=== PATIENT | female | born 1980 | race Caucasian/White ===

== ENCOUNTER 2017-08-26 03:48 | Emergency (ER) | payer SELFPAY ==
[~2017-08-26] VITALS: Ht 160 cm; Wt 75.0 kg
[~2017-08-26 03:48] MED LIST: IBUP-1542 PO
[2017-08-26 03:54] VITALS: Ht 160 cm; Wt 75.0 kg
[2017-08-26] MEDS ORDERED: ACET500C5 PO (04:57)
--- NOTE | 2017-08-26 05:19 | ERD ---
ER Documentation Chief Complaint Chief Complaint bodyache and MONTERROSO x 1 day. Not taking pain meds HPI 26-year-old female presents here in emergency department for complaints of headache and body started today. Patient's complaint of headache, throbbing pain, 6/10 scale, not better or worse with anything. Patient did not take any medications for pain. Patient denies any blurred vision, patient denies any head injury. Patient denies any numbness or tingling. Patient denies any sore throat or ear pain. ROS All systems reviewed and are negative except as per history of present illness. Medications Home Meds Active Scripts Acetaminophen* (Tylophen*) 500 Mg Capsule, 1 CAP PO Q6H Y for PAIN AND OR ELEVATED TEMP, #20 CAP Prov:HERNAN GUEVARA NP 08/26/17 Ibuprofen* (Motrin*) 600 Mg Tab, 600 MG PO Q6, #30 TAB Prov:KAYCEE ARZOLA PA-C 04/08/16 Allergies Allergies: Coded Allergies: No Known Allergy (Unverified , 08/26/17) PMhx/Soc History of Surgery: Yes (right thoracentesis) Anesthesia Reaction: No Hx Neurological Disorder: No Hx Respiratory Disorders: No Hx Cardiac Disorders: No Hx Psychiatric Problems: No Hx Miscellaneous Medical Probl: No Hx Alcohol Use: Yes (occasionally.) Hx Substance Use: No Hx Tobacco Use: No Smoking Status: Never smoker FmHx Family History: No coronary disease, No diabetes, No other Physical Exam Vitals Vital Signs Date Time Temp Pulse Resp B/P Pulse Ox O2 Delivery O2 Flow Rate FiO2 08/26/17 03:54 97.3 80 18 110/77 98 Physical Exam GENERAL: The patient is well developed and appropriate for usual state of health, in no apparent distress. CHEST: Clear to auscultation bilaterally. There are no rales, wheezes or rhonchi. HEART: Regular rate and rhythm. No murmurs, clicks, rubs or gallops. No S3 or S4. ABDOMEN: Soft, nontender and nondistended. Good bowel sounds. No rebound or guarding. No gross peritonitis. No gross organomegaly or masses. No Carr sign or McBurney point tenderness. BACK: No midline or flank tenderness. EXTREMITIES: Equal pulses bilaterally. There is no peripheral clubbing, cyanosis or edema. No focal swelling or erythema. Full range of motion. Grossly neurovascularly intact. NEURO: Alert and oriented. Cranial nerves 2-12 intact. Motor strength in all 4 extremities with 5/5 strength. Sensation grossly intact. Normal speech and gait. Negative Romberg sign. Negative pronator drift. SKIN: There is no apparent rash or petechia. The skin is warm and dry. HEMATOLOGIC AND LYMPHATIC: There is no evidence of excessive bruising or lymphedema. No gross cervical, axillary, or inguinal lymphadenopathy. Procedures/MDM Medical Decision Making: Patient symptoms are consistent with migraine headache , possible tension headache, can be from viral illness. There is low suspicion for neurological emergencies at this time since patients neurologic exam is normal. Patient did not have any altered level consciousness, vomiting, changes in balance or memory and did not have any head injury. Patients CT scan of the head does not show any neurological emergencies at this time. Rx: Tylenol Dispostion: Home. Stable Disclaimer: Inadvertent spelling and grammatical errors are likely due to EHR/ dictation software use and do not reflect on the overall quality of patient care. Also, please note that the electronic time recorded on this note does not necessarily reflect the actual time of the patient encounter. Departure Diagnosis: Primary Impression: Headache Headache type: unspecified Headache chronicity pattern: acute headache Intractability: not intractable Qualified Code: R51 - Acute nonintractable headache, unspecified headache type Condition: Stable Patient Instructions: Self-Care for Headaches HERNAN GUEVARA NP Aug 26, 2017 05:19
== END 2017-08-26 05:00 | disposition home or self-care (01) ==
LOC: FTE 03:48
DX: R51 Headache (principal)
CPT/HCPCS: 99283